=== PATIENT | female | born 1970 | race Caucasian/White ===

== ENCOUNTER 2018-10-25 08:24 | Emergency (ER) | payer BC ==
[~2018-10-25] VITALS: Ht 162.6 cm; Wt 55.8 kg
[2018-10-25 08:27] VITALS: Ht 162.6 cm; Wt 55.8 kg
[2018-10-25 09:11] VITALS: BP 126/77
== END 2018-10-25 09:11 | disposition home or self-care (01) ==
LOC: ED 08:24
DX: S16.1XXA Strain of muscle, fascia and tendon at neck level, initial encounter (principal); S09.8XXA Other specified injuries of head, initial encounter; F17.210 Nicotine dependence, cigarettes, uncomplicated; Z71.6 Tobacco abuse counseling; V49.9XXA Car occupant (driver) (passenger) injured in unspecified traffic accident, initial encounter; Y93.I9 Activity, other involving external motion; Y92.413 State road as the place of occurrence of the external cause; Y99.8 Other external cause status
CPT/HCPCS: 99406